=== PATIENT | female | born 2000 | race Caucasian/White ===

== ENCOUNTER 2021-08-06 16:35 | Emergency (ER) | payer BC ==
[~2021-08-06] VITALS: Ht 177.8 cm; Wt 68.0 kg
[2021-08-06] MEDS ORDERED: ZITHROMAX500 MG PO (19:06)
[2021-08-06] MEDS ORDERED: OSEL75CA PO (19:06)
[2021-08-06] MEDS ORDERED: TUSNEL LIQUID178 ML PO (19:06)
[2021-08-06] MEDS ORDERED: ZYRTEC10 MG PO (19:06)
== END 2021-08-06 19:40 | disposition home or self-care (01) ==
LOC: ER 16:35
DX: J06.9 Acute upper respiratory infection, unspecified (principal); J10.1 Influenza due to other identified influenza virus with other respiratory manifestations; H92.02 Otalgia, left ear; Z20.822 Contact with and (suspected) exposure to COVID-19